=== PATIENT | male | born 1980 | race African-American/Black ===

== ENCOUNTER 2018-01-04 12:15 | Emergency (ER) | payer MEDICAID ==
[~2018-01-04] VITALS: Ht 172.7 cm; Wt 66.0 kg
[2018-01-04 12:18] VITALS: BP 106/63
== END 2018-01-04 16:03 | disposition home or self-care (01) ==
LOC: ER 15:26
DX: M54.5 Low back pain (principal); R21 Rash and other nonspecific skin eruption
CPT/HCPCS: 99283